=== PATIENT | male | born 1985 | race Hispanic/Latino ===

== ENCOUNTER 2022-01-26 09:42 | Emergency (ER) | payer SELFPAY ==
[~2022-01-26] VITALS: Ht 167.6 cm; Wt 75.0 kg
[2022-01-26 09:54] VITALS: BP 128/82
[2022-01-26] MEDS ORDERED: BACTRIM DS1 TAB PO (09:56)
[2022-01-26 10:00] VITALS: BP 121/78
[2022-01-26 10:50] VITALS: BP 121/78
[2022-01-27] MEDS ORDERED: BACTRIM DS1 TAB PO (10:55)
== END 2022-01-26 11:00 | disposition home or self-care (01) | DRG 951 ==
LOC: ED 09:42
DX: Z48.01 Encounter for change or removal of surgical wound dressing (principal)

== ENCOUNTER 2022-01-27 09:06 | Emergency (ER) | payer SELFPAY ==
[~2022-01-27] VITALS: Ht 167.6 cm; Wt 80.0 kg
[~2022-01-27 09:06] MED LIST: BACTRIM DS1 TAB PO
[2022-01-27] MEDS ORDERED: BACTRIM DS1 TAB PO (10:55)
[2022-01-27 11:10] VITALS: BP 124/86
[2022-01-27 11:17] VITALS: BP 124/86
== END 2022-01-27 11:18 | disposition home or self-care (01) | DRG 951 ==
LOC: ED 09:06
DX: Z48.01 Encounter for change or removal of surgical wound dressing (principal)